=== PATIENT | female | born 1990 | race Two or more races ===

== ENCOUNTER 2025-02-15 14:08 | Emergency (ER) | payer OTHER, SELFPAY ==
--- NOTE | ~2025-02-15 | CT_ITS ---
EXAMINATION: CT HEAD WITHOUT CONTRAST CLINICAL INFORMATION: Hypertension, headaches COMPARISON: None available. TECHNIQUE: Contiguous axial imaging was performed from the skull base to vertex without intravenous administration of contrast. This CT examination was performed using dose optimization techniques as appropriate, variously including the following: *Automated exposure control *Adjustment of mA and/or kV according to patient size (this includes techniques or standardized protocols for targeted exams where dose is matched to indication/reason for exam; i.e. extremities or head) *Use of iterative reconstruction technique DLP: 507 mGy/cm. FINDINGS: There is no acute intra-axial, extra-axial bleed, masses or midline shift. There is no acute infarction evolution. The lombardo to white matter differentiation is maintained normal. The lateral ventricles are symmetrical in size and and configuration without enlargement. No abnormality seen in the posterior fossa. Bone windows reveal no calvarial abnormality. There is no scalp soft tissue abnormality. Bilateral paranasal sinuses and mastoid air cells are well-aerated. CT/CT head/brain wo IV con IMPRESSION: No acute intracranial process seen. Electronically signed by: José Miguel Champagne MD 02/15/2025 03:38 PM EDT
[2025-02-15 14:22] VITALS: BP 195/107; PULSE 66; RESP 16; TEMP 36.8; O2SAT 98; BMI 26.7
--- NOTE | 2025-02-15 14:28 | ED_ITS ---
HPI - General Adult General Chief complaint: Headache Stated complaint: High BP Time Seen by Provider: 02/15/25 20:04 Source: patient Mode of arrival: ambulatory Limitations: language barrier ([place] speaking only, [facility] [place] History of Present Illness ED Provider: Dr. Levar Gonzalez HPI narrative: 34-year-old female with no significant past medical history who presents emergency department for evaluation of 2 days of intermittent headaches. The patient points to posterior aspect of her head when asked to localize the pain. She describes it as a pressure pain which is 10/10 at its worst in his currently 5/10. She had associated dizziness and nausea. She denied weakness, numbness, change in her vision. She states that yesterday, she had 3 headaches that lasted a proximally 10 minutes each. She states that today she has had more than 10 headaches. Patient states she gets these headaches monthly around her menstrual period. She states that her menses started yesterday. The patient took Tylenol with no relief for symptoms. Patient also states that she has been having high blood pressure readings over the last 2 months with blood pressure in the 160/100 range. She has never been diagnosed with hypertension in his never been on medications. Vital signs revealed an elevated blood pressures otherwise unremarkable. Physical examination was unremarkable. Differential diagnosis: ?Includes but is not limited to intracranial hemorrhage, stroke, mass effect, hypertensive emergency anemia, electrolyte abnormalities, Course: 21:05 My independent interpretation patient's laboratory evaluation is as follows: CBC was normal. CMP was normal. Troponin was below detectable limits. Beta- hCG was negative-the patient is not . CT scan of the brain revealed no acute abnormalities. Patient's presentation is consistent with a acute migraine syndrome and I do not think that she has hypertensive urgency or emergency. The patient was treated with Reglan 10 mg, Benadryl 50 mg, Tylenol 650 mg and aspirin 81 mg orally. Patient was also given lisinopril 20 mg orally. Related Data Previous Rx's ?Medication ?Instructions ?Recorded zwkjauz-gzlklpqdevtxi-pgwjtsnj 250 2 tab PO Q6H PRN he adache #20 tabs 02/15/25 mg-250 mg-65 mg tablet (Excedrin Extra Strength) diphenhydramine HCl 25 mg capsule 50 mg (2 x 25 mg) PO Q6H PRN 02/15/25 headache, nausea, vomiting #20 caps lisinopril 20 mg tablet 20 mg PO DAILY 90 days #90 t abs 02/15/25 metoclopramide HCl 10 mg tablet 10 mg PO Q6H PRN nause a and 02/15/25 (Reglan) vomiting #14 tabs Allergies Allergy/AdvReac Type Severity Reaction Status Date / Time No Known Allergies Allergy Verified 02/15/25 14:29 Review of Systems 2 Review of Systems: Yes all other systems are reviewed and are negative [facility] Past Medical History [facility] Narrative: Social history: She denies tobacco, alcohol and drug use. Social History Social History Advance Directives: No Advance Directives Information Provided: No Do you have a plan to hurt others: No Plan Physical Exam ED Vital Signs: Vital Signs - 24 hr 02/15/25 14:22 02/15/25 20:12 02/15/25 20:46 Temperature 98.2 F 98.9 F Pulse Rate 66 66 Respiratory Rate 16 16 Blood Pressure 195/107 H 177/107 H 159/97 H Pulse Oximetry 98 100 Oxygen Delivery Method Room Air Room Air BMI result Body Mass Index 26.7 Vital signs revealed elevated blood pressure of 195/107 otherwise unremarkable Exam: General: Awake, alert in no distress Head: Normocephalic, atraumatic EENT: PERRL, Lids normal, sclera normal, conjunctiva normal, nose normal , ears normal, throat without erythema or exudates Neck: Supple, no adenopathy Lung: breath sounds symmetric, no wheezing, rales or rhonchi Chest: symmetric movement, nontender Heart: regular rate and rhythm, normal S1, S2 no murmurs or rubs Abdomen: soft, non-tender, nondistended, normal bowel sounds Back: no vertebral tenderness, no CVAT Extremities: no deformities, moves all extremities symmetrically Neuro: Awake, alert, oriented, normal speech, cranial nerves intact, moves all extremities symmetrically Psych: Pleasant, cooperative Course Course Course Narrative: This is an RME: Additional HPI, ROS, PE not included below will be deferred to primary provider. RME assessment and note performed by: Cristal Singh PA-C This is a 59-wnhg-wls-female who presents to the ER with a complaint of high blood pressure. Reports that over the last 2 days she has had headaches, BP at home was high and she came in to be evaluated. No CP/SOB. Endorsing dizziness. Started menses yesterday. Plan: Labs, UA, CT head Medications Administered Discontinued Medications Generic Name Dose Route Start Last Admin Trade Name Julieth HULL Reason Stop Dose Admin Acetaminophen 650 mg 02/15/25 20:32 02/15/25 20:46 Acetaminophen 325 Mg Tablet PO 02/15/25 20:33 650 mg ONCE ONE Administration Aspirin 81 mg 02/15/25 20:32 02/15/25 20:46 Aspirin 81 Mg Tab.Chew PO 02/15/25 20:33 81 mg ONCE ONE Administration Diphenhydramine HCl 50 mg 02/15/25 20:32 02/15/25 20:46 Diphenhydramine Hcl 25 Mg Capsule PO 02/15/25 20:33 50 mg ONCE ONE Administration Lisinopril 20 mg 02/15/25 20:32 02/15/25 20:46 Lisinopril 20 Mg Tablet PO 02/15/25 20:33 20 mg ONCE ONE Administration Protocol Metoclopramide HCl 10 mg 02/15/25 20:32 02/15/25 20:46 Metoclopramide Hcl 10 Mg Tablet PO 02/15/25 20:33 10 mg ONCE STA Administration Medical Decision Making Medical Decision Making MDM Narrative: 34-year-old female with no significant past medical history who presents emergency department for evaluation of 2 days of intermittent headaches. The patient points to posterior aspect of her head when asked to localize the pain. She describes it as a pressure pain which is 10/10 at its worst in his currently 5/10. She had associated dizziness and nausea. She denied weakness, numbness, change in her vision. She states that yesterday, she had 3 headaches that lasted a proximally 10 minutes each. She states that today she has had more than 10 headaches. Patient states she gets these headaches monthly around her menstrual period. She states that her menses started yesterday. The patient took Tylenol with no relief for symptoms. Patient also states that she has been having high blood pressure readings over the last 2 months with blood pressure in the 160/100 range. She has never been diagnosed with hypertension in his never been on medications. Vital signs did reveal an elevated blood pressure otherwise unremarkable. Physical examination was normal Differential diagnosis: ?Includes but is not limited to intracranial bleed, stroke, comprehensive migraine headache, nonspecific headache, hypertensive crisis, myocardial infarction, renal disease, liver disease, electrolyte abnormalities, anemia Course: 21:49 My independent interpretation patient's laboratory evaluation is as follows: CBC was normal. CMP was normal. Troponin was below detectable limits, quantitative beta-hCG was below detectable. Twelve EKG was unremarkable. CT scan of the brain was normal. Patient's presentation is consistent with a migraine headache. The patient is treated with Reglan 10 mg, Tylenol 650 mg, aspirin 81 mg and Reglan 10 mg orally with complete relief of her headache. The patient most likely has a essential hypertension and I did discuss this with her. She was given lisinopril 20 mg orally and started on lisinopril 20 mg daily, 90 day supply with 3 refills. She was given printed and verbal instructions on migraine headaches and on management of hypertension. I also gave her numbers to possible PCP's. Differential Diagnosis Differential Diagnoses: The differential diagnosis associated with the presentation includes (See above) Admission/Observation Consideration of admission/observation: Escalation of care including admission/observation considered (Yes) Lab Data MDM Lab Attestation statement: I reviewed the patient's lab results. 02/15/25 14:38 02/15/25 14:38 Labs: Lab Results 02/15/25 Range/Units 14:38 WBC 8.8 (4.8-10.8) X10*3/uL RBC 4.99 (4.20-5.50) X10*6/uL Hgb 13.1 (12.0-16.0) g/dl Hct 38.9 (37.0-47.0) % MCV 78.0 L (80.0-98.0) fL MCH 26.3 L (27.0-33.0) pg MCHC 33.7 (31.0-35.0) g/dl RDW 13.2 (11.0-16.0) % Plt Count 265 (160-400) X10*3/uL MPV 8.9 L (9.4-12.3) fL Immature Gran % (Auto) 0.5 H (0.0-0.4) % Neut % (Auto) 56.3 (45-73) % Lymph % (Auto) 34.5 (20-40) % [place] % (Auto) 6.9 (2-11) % Eos % (Auto) 1.6 (0-4) % Baso % (Auto) 0.2 (0-2) % Lymph # (Auto) 3.1 (1.2-4.9) X10*3/uL [place] # (Auto) 0.6 (0.1-1.2) X10*3/uL Eos # (Auto) 0.1 (0.0-0.4) X10*3/uL Baso # (Auto) 0.0 (0.0-0.2) X10*3/uL Abs Immat Gran (auto) 0.04 H (0.00-0.03) X10*3/uL Absolute Neuts (auto) 5.0 (2.0-8.3) x10*3/uL Absolute Nucleated RBC 0.000 (0.0-0.012) X10*3/uL Nucleated RBC % (auto) 0.0 (0.0-0.2) /100WBC Sodium 139 (135-145) mmol/L Potassium 4.0 (3.3-5.1) mmol/L Chloride 107 (96-108) mmol/L Carbon Dioxide 25 (22-29) mmol/L Anion Gap 11 L (12-20) BUN 12 (9-16) mg/dL Creatinine 0.78 (0.5-1.4) mg/dL Estim Creat Clear Calc 89.8 Estimated GFR > 60 Random Glucose 93 (60-115) mg/dL Calcium 9.2 (8.4-10.2) mg/dL Magnesium 2.3 (1.6-2.6) mg/dL Total Bilirubin 0.8 (0.0-1.0) mg/dL Direct Bilirubin 0.2 (0.0-0.5) mg/dL AST 20 (5-31) U/L ALT 17 (0-31) U/L Alkaline Phosphatase 73 (39-117) U/L Troponin I High Sens < 2.7 (<3.5-17.0) ng/L Total Protein 7.8 (6.5-8.0) g/dL Albumin 4.7 (3.5-5.0) g/dL Beta HCG, Quant < 2 mIU/mL Independent Interpretation I performed an independent interpretation of an: EKG Interpretation: My independent interpretation of the patient's EKG done on 02/15/2025 at 14:44 hours is as follows: Normal sinus rhythm rate of 63, normal WI interval, QRS duration and QTC interval, inverted T-wave in lead 3 and V1, no ST segment elevation, no ST segment depression, no PACs, no PVCs Radiology Impression Discussion of test interpretation with radiology: I have reviewed the radiologist's reading. Radiologist Impression: CT head/brain wo IV con IMPRESSION: No acute intracranial process seen. Electronically signed by: José Miguel Champagne MD 02/15/2025 03:38 PM EDT RP Prescription Management I considered prescription management with: Pain Medication (Reglan, Benadryl, Excedrin migraine) and Other (Antihypertensive: Lisinopril) Discharge Plan Discharge Clinical Impression: Essential (primary) hypertension Migraine Qualifiers: Status migrainosus presence: without status migrainosus Patient Disposition: Home, Self-Care Instructions: Migraine Headache (ED) Additional Instructions: The CT scan of your head was normal which is reassuring. You had a complete blood count, comprehensive metabolic panel and EKG which were normal which is reassuring. Your test was below detectable limits, you are not . Migraine instructions Your symptoms are consistent with a migraine. I want you to take the following 3 medications together every 6 hours as needed for headache, nausea or vomiting. Reglan (metoclopramide) in 10 mg, 1 pill Benadry (diphenhydramine) 25 mg, 2 pills Excedrin migraine (acetaminophen, aspirin, caffeine), 2 pills. After you take these medications, lie down in a dark quiet room and try to fall asleep. ?These medications will make you sleepy, do not drive or work after taking these medications. High blood pressure instructions: I am starting you on lisinopril 20 mg once a day. This has a medication that treats high blood pressure. It will take 2-6 weeks for this medication to work to lower your blood pressure. Take your blood pressure in the mornings, Mondays , Wednesdays and Fridays and then write down these readings to discuss them with your doctor at your next visit. Do not worry about any high blood pressure readings. Do this for 2-4 weeks and hopefully by that time you can get a primary care doctor. If your primary care doctor thinks that your blood pressures are too high then they will either increase lisinopril and /or start you on a 2nd high blood pressure medication. If your doctor changes your blood pressure medications it will take anywhere from 2-6 week before these medications work to reduce your blood pressure. Follow-up with your doctor to discuss your blood pressure readings in 2 weeks Please return to the emergency department if your symptoms get worse or if you develop any new symptoms that are concerning to you. If you do not have a primary care physician, call the following numbers to see if you can get a primary care provider to help you with your medical problems. [facility] PCP referral line ?for adult primary care and family practice medicine. [facility] While waiting to establish your new primary care physician,for non-emergency needs you can go ?to: [facility] [place] [place] [facility] . [facility] [place] [address] [facility] [facility]) provides services to ages 18 and over. Open Friday-Friday: 7 am to 5 pm Prescriptions: New diphenhydramine HCl 25 mg capsule 50 mg PO Q6H PRN (Reason: headache, nausea, vomiting) Qty: 20 0RF sbclrmg-alhljvneunjqq-mrminfqf [Excedrin Extra Strength] 250-250-65 mg tablet 2 tab PO Q6H PRN (Reason: headache) Qty: 20 0RF metoclopramide HCl [Reglan] 10 mg tablet 10 mg PO Q6H PRN (Reason: nausea and vomiting) Qty: 14 0RF lisinopril 20 mg tablet 20 mg PO DAILY 90 Days Qty: 90 3RF Print Language: [place]er
--- NOTE | 2025-02-15 14:39 | ECG_ITS ---
Test Reason : HIGH BP Blood Pressure : */* mmHG Vent. Rate : 63 BPM Atrial Rate : 63 BPM P-R Int : 146 ms QRS Dur : 74 ms QT Int : 424 ms P-R-T Axes : 37 22 6 degrees QTcB Int : 433 ms Normal sinus rhythm Normal ECG No previous ECGs available Referred By: Cristal Singh Electronically Signed By: GIOVANNI HOLLY MD
[2025-02-15 14:44] LABS: MANUAL DIFF FLAG NO
[2025-02-15 14:47] LABS: Hematocrit 38.9 % (37.0-47.0); Hemoglobin 13.1 g/dl (12.0-16.0); Imm Gran Abs Auto 0.04 X10*3/uL (0.00-0.03); Imm Gran Pct Auto 0.5 % (0.0-0.4); Lymphocytes Absolute Auto 3.1 X10*3/uL (1.2-4.9); Mean Corpuscular HGB Conc 33.7 g/dl (31.0-35.0); Mean Corpuscular Hemoglobin 26.3 pg (27.0-33.0); Mean Corpuscular Volume 78.0 fL (80.0-98.0); NRBC Abs Auto 0.000 X10*3/uL (0.0-0.012); NRBC Pct Auto 0.0 /100WBC (0.0-0.2); Platelet Count 265 X10*3/uL (160-400); Red Blood Count 4.99 X10*6/uL (4.20-5.50); White Blood Count 8.8 X10*3/uL (4.8-10.8)
[2025-02-15 15:08] LABS: Alanine Aminotransferase 17 U/L (0-31); Albumin Level 4.7 g/dL (3.5-5.0); Alkaline Phosphatase 73 U/L (39-117); Anion Gap 11 (12-20); Aspartate Amino Transferase 20 U/L (5-31); Blood Urea Nitrogen 12 mg/dL (9-16); Calcium 9.2 mg/dL (8.4-10.2); Carbon Dioxide 25 mmol/L (22-29); Chloride 107 mmol/L (96-108); Creatinine Clr Calc Pharmacy 89.8; Estimated Glomerular Filt Rate > 60; Magnesium 2.3 mg/dL (1.6-2.6); Potassium 4.0 mmol/L (3.3-5.1); Sodium 139 mmol/L (135-145); Total Protein 7.8 g/dL (6.5-8.0)
[2025-02-15 15:09] LABS: Troponin-I High Sensitivity < 2.7 ng/L (<3.5-17.0)
[2025-02-15 20:12] VITALS: BP 177/107; PULSE 66; RESP 16; TEMP 37.2; O2SAT 100
[2025-02-15 20:46] VITALS: BP 159/97
--- OUTSIDE RECORDS SUMMARY | 2025-02-15 21:30 | XMS_ITS | Clinical Summary ---
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 Phone Unavailable Primary Care Provider Unavailabl e Allergies No known active allergies Medications No known medications Active Problems Problem Noted Date Diagnosed Date Dental calculus 02/02/2024 Gingival bleeding 02/02/2024 Encounters Date Type Department Care Team Description 02/15/2025 Travel 02/15/2025 Telephone [facility] [address] [place] [address] Jeevan Canales MD telephone call 02/03/2025 Travel from Last 3 Months Social History Tobacco Use Types Packs/Day Years Used Date Smoking Tobacco: Never Smokeless Tobacco: Never Tobacco Cessation:Counseling Given: Not Answered Alcohol Use Standard Drinks/Week Comments Not Currently 0 (1 standard drink = 0.6 oz pur e alcohol) Comments Unknown Sex and Gender Information Value Date Recorded Sex Assigned at Female 12/10/2023 2:19 PM EDT Legal Sex Female 11:07 AM EST Gender Identity Female 12/10/2023 2:19 PM EDT Sexual Orientation Straight 12/10/2023 2: 19 PM EDT Last Filed Vital Signs Vital Sign Reading Time Taken Comments Blood Pressure 138/86 08/05/2024 10:13 AM EST Pulse 72 02/23/2024 10:18 AM EDT Temperature 37.2 C (98.9 F) 01/06/2024 11:30 AM EDT Respiratory Rate 16 01/06/2024 11:30 AM EDT Oxygen Saturation 99% 01/06/2024 11:30 AM EDT RA Inhaled Oxygen Concentration - - Weight - - Height - - Body Mass Index - - Plan of Treatment Health Maintenance Due Date Last Done Comments Depression Screening 1989 HIV Screening 1989 SDOH Screening 1989 Disability Screening 1989 Alcohol/Substance Use Screening 2001 Family Planning (PISQ) 2004 HPV Vaccines (1 - 3-dose series) 2004 Hepatitis C Screening 09/21/2007 DTaP/Tdap/Td Vaccines (1 - Tdap) 2008 Hepatitis B Vaccines (1 of 3 - 19+ 3-dose series) 2008 Pap Smear 2010 Cervical Cancer Screening 09/21/2019 HPV/Cotest 09/21/2019 Dental Oral Exam 07/09/2024 01/06/2024 Dental X-Ray: Bitewings 01/06/2025 01/06/2024 Dental Prophylaxis 02/03/2025 08/05/2024, 02/02/2024 COVID-19 Vaccine (1 - 2023-2 5 season) 2025 Influenza Vaccine (#1) 2025 Tobacco Screening 02/22/2025 02/23/2024 Dental X-Ray: Full Mouth 01/06/2027 01/06/2024 Zoster Vaccines (1 of 2) 09/21/2039 RSV Patients and Patients Aged 60 years or older (1 - 1-dose 75+ series) 2064 HIB Vaccines Aged Out No longer eligi ble based on patient's age to complete this topic Hepatitis A Vaccines Aged Out No long er eligible based on patient's age to complete this topic IPV Vaccines Aged Out No longer eligi ble based on patient's age to complete this topic Meningococcal B Vaccine Aged Out No l onger eligible based on patient's age to complete this topic Meningococcal Vaccine Aged Out No tamar fatemeh eligible based on patient's age to complete this topic Pneumococcal Vaccine: Pediatrics (0 to 5 Years) and At-Risk Patients (6 to 49) Years Aged Out No longer eligible b ased on patient's age to complete this topic RSV under 20 months Aged Out No longe r eligible based on patient's age to complete this topic Rotavirus Vaccines Aged Out No longer eligible based on patient's age to complete this topic Procedures Procedure Name Priority Date/Time Associated Diagnosis Comments PROPHYLAXIS - ADULT Routine 08/05/2024 1 0:00 AM EST Dental calculus INTRAORAL - COMPLETE SERIES OF RADIOGRAPHIC IMAGES Routine 01/06/2024 10:30 AM EDT COMPREHENSIVE ORAL EVALUATION - NEW OR ESTABLISHED PATIENT Routine 01/06/2024 10:30 AM EDT from Last 3 Months or Most Recently Relevant to Health Maintenance Insurance [place] F[place] DENTAL - [facility]SN FULL (MEDICAID) DENTAL-[facility] MEDICAID LIMITED ADULT
--- OUTSIDE RECORDS SUMMARY | 2025-02-15 21:30 | XMS_ITS | Encounter Summary ---
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 Role Phone Unavailable Primary Care Provider Unavailabl e Encounter Details Date Type Department Care Team (Latest Contact Info) Description 02/15/2025 Travel Social History Tobacco Use Types Packs/Day Years Used Date Smoking Tobacco: Never Smokeless Tobacco: Never Alcohol Use Standard Drinks/Week Comments Not Currently 0 (1 standard drink = 0.6 oz pur e alcohol) Comments Unknown Sex and Gender Information Value Date Recorded Sex Assigned at Female 12/10/2023 2:19 PM EDT Legal Sex Female 11:07 AM EST Gender Identity Female 12/10/2023 2:19 PM EDT Sexual Orientation Straight 12/10/2023 2: 19 PM EDT documented as of this encounter Plan of Treatment Not on file documented as of this encounter Visit Diagnoses Not on filedocumented in this encounter
--- OUTSIDE RECORDS SUMMARY | 2025-02-15 21:30 | XMS_ITS | Encounter Summary ---
Author Organization [employer] Address [address] [place] [address] Care Team Providers Care Creative Lead Name Role Phone Unavailable Primary Care Provider Unavailabl e Reason for Visit * Reason Onset Date Comments telephone call 02/15/2025 Encounter Details Date Type Department Care Team (Late st Contact Info) Description 02/15/2025 Telephone [facility] [address] [place] [address] Jeevan Canales MD [address] [place] [address] telephone call Social History Tobacco Use Types Packs/Day Years [...] PM EDT documented as of this encounter Miscellaneous Notes * Telephone Encounter - Janessa Mi - 02/15/2025 3:34 PM EDT Patient added to [facility] New Patient wait list as of 02/15/25. * Telephone Encounter - Chana Kale - 02/15/2025 10:47 AM EDT Pt walked in stating she has been calling for a few weeks trying to become a new pt. Best contact number is [phone] documented in this encounter Plan of Treatment Not on file documented as of this encounter Visit Diagnoses Not on filedocumented in this encounter
[2025-02-15 21:57] VITALS: BP 151/87; PULSE 62; RESP 16; TEMP 36.9; O2SAT 99
[2025-02-15 22:21] VITALS: BP 151/87; PULSE 62; RESP 16; TEMP 36.9; O2SAT 99
== END 2025-02-15 22:22 | disposition home or self-care (01) ==
PROVIDERS: Physician Assistant Medical; Emergency Provider Emergency Medicine Emergency Medical Services
DX: G43.909 Migraine, unspecified, not intractable, without status migrainosus (principal); R11.0 Nausea; R42 Dizziness and giddiness; I10 Essential (primary) hypertension; Z79.899 Other long term (current) drug therapy
CPT/HCPCS: 36415; 70450; 80048; 80076; 83735; 84484; 84702; 85025; 93005; 99284; 99285

== ENCOUNTER → 2025-02-15 14:29 | Outpatient (BNV) | payer OTHER, SELFPAY | PROVIDERS: Visit Provider Radiology Diagnostic Radiology | DX: R51.9 Headache, unspecified (principal) | CPT/HCPCS: 70450 ==

== ENCOUNTER → 2025-02-15 14:39 | Outpatient (BNV) | payer OTHER, SELFPAY | PROVIDERS: Emergency Provider Emergency Medicine Emergency Medical Services; Visit Provider Internal Medicine Cardiovascular Disease | DX: I10 Essential (primary) hypertension (principal) | CPT/HCPCS: 93010 ==